=== PATIENT | male | born 1955 | race Caucasian/White ===

== ENCOUNTER 2020-07-08 12:07 | Inpatient (IN) | payer MEDICARE, OTHER ==
[2020-07-08 12:50] LABS: BASOPHIL 0.9 % (0-2); EOSINOPHIL 1.9 % (0-7); HCT 42.6 % (42.0-52.0); HGB 13.4 g/dl (13.2-18.0); LYMPHOCYTE 19.8 % (15-48); MCH 28.9 pg (25.0-31.0); MCHC 31.5 g/dL (32.0-36.0); MONOCYTE 12.3 % (0-12); MPV 11.3 fL (6.0-9.5); NEUTROPHIL 64.8 % (41-80); NRBC 0; PLT 261 K/uL (150-400); RBC 4.63 M/uL (4.70-6.00); RDW 14.2 % (11.5-14.0); WBC 7.5 K/uL (4.0-10.5)
[2020-07-08 13:06] LABS: LACTIC ACID 1.7 mmol/L (0.4-1.9)
[2020-07-08 13:16] LABS: INR 1.39 (0.9-1.2); PROTHROMBIN TIME 16.2 SECONDS (11.4-13.6); PTT 35.4 SECONDS (22.2-34.7)
[2020-07-08 13:56] LABS: ALBUMIN 3.1 g/dL (3.4-5.0); BILIRUBIN - TOTAL 0.8 mg/dL (0.2-1.0); CREATININE 0.85 mg/dL (0.67-1.17); GLOBULIN (CALCULATION) 3.8 g/dL; MAGNESIUM 1.6 mg/dL (1.8-2.4); TOTAL PROTEIN 6.9 g/dL (6.4-8.2)
[2020-07-08 14:03] LABS: BILIRUBIN NEGATIVE (NEGATIVE); BLOOD NEGATIVE Ery/uL (NEGATIVE); CLARITY CLEAR (CLEAR); COLOR YELLOW (YELLOW); GLUCOSE (U) NORMAL (NORMAL); LEUKOCYTES NEGATIVE Leu/uL (NEGATIVE); NITRITE NEGATIVE (NEGATIVE); PROTEIN 1+ mg/dL (NEGATIVE); UROBILINOGEN 0.2 mg/dL (0.2-1.0)
[2020-07-08 14:07] LABS: AMPHETAMINES NEGATIVE (NEGATIVE); BARBITURATES NEGATIVE (NEGATIVE); ECSTASY (MDMA) NEGATIVE (NEGATIVE); MARIJUANA (THC) NEGATIVE (NEGATIVE); METHADONE NEGATIVE (NEGATIVE); OPIATES NEGATIVE (NEGATIVE); OXYCODONE NEGATIVE (NEGATIVE)
[2020-07-08 14:11] LABS: URINARY RBC RARE
[2020-07-08 14:12] LABS: SQUAMOUS EPITHELIAL CELLS RARE
[2020-07-08] MEDS ORDERED: ASPIRIN EC81 MG PO (18:22)
[2020-07-08] MEDS ORDERED: ELIQUIS5 MG PO (18:22)
[2020-07-08] MEDS ORDERED: LIPITOR20 MG PO (18:23)
[2020-07-08] MEDS ORDERED: COREG25 MG PO (18:24)
[2020-07-08] MEDS ORDERED: OS-CAL500 MG PO (18:24)
[2020-07-08] MEDS ORDERED: LEXAPRO 10MG TA10 MG PO (18:25)
[2020-07-08] MEDS ORDERED: DOXEPIN HCL50 MG PO (18:25)
[2020-07-08] MEDS ORDERED: LASIX40 MG PO (18:26)
[2020-07-08] MEDS ORDERED: PEPCID AC20 MG PO (18:26)
[2020-07-08] MEDS ORDERED: LEVOTHYROXINE75 MC2 PO (18:27)
[2020-07-08] MEDS ORDERED: COZAAR50 MG PO (18:28)
[2020-07-08] MEDS ORDERED: CLARITIN10 MG PO (18:28)
[2020-07-08] MEDS ORDERED: MULTI-VITAMIN1 EACH PO (18:29)
[2020-07-08] MEDS ORDERED: NITROGLYCERIN0.4 MG SL (18:38)
[2020-07-08] MEDS ORDERED: POTASSIUM CHLOR8 MEQ PO (18:40)
--- NOTE | 2020-07-08 18:44 | NUR ---
PT CIWA SCORE 3, NO INTERVENTIONS NEEDED. PLACED IN CHART.
[2020-07-09 06:04] LABS: BASOPHIL 0 % (0-2); EOSINOPHIL 0 % (0-7); HCT 36.1 % (42.0-52.0); HGB 11.6 g/dl (13.2-18.0); LYMPHOCYTE 19.9 % (15-48); MCH 28.9 pg (25.0-31.0); MCHC 32.1 g/dL (32.0-36.0); MONOCYTE 6.9 % (0-12); NEUTROPHIL 72.8 % (41-80); NRBC 0; PLT 219 K/uL (150-400); RBC 4.01 M/uL (4.70-6.00); WBC 2.6 K/uL (4.0-10.5)
[2020-07-09 06:23] LABS: ALBUMIN 2.5 g/dL (3.4-5.0); BILIRUBIN - TOTAL 0.6 mg/dL (0.2-1.0); BUN/CREAT RATIO (CALC) 18.2 RATIO; CREATININE 1.21 mg/dL (0.67-1.17); GLOBULIN (CALCULATION) 2.9 g/dL; PHOSPHORUS 4.2 mg/dL (2.6-4.7); POTASSIUM 4.1 mmol/L (3.5-5.1); TOTAL PROTEIN 5.4 g/dL (6.4-8.2)
[2020-07-09 06:30] LABS: INR 1.48 (0.9-1.2)
--- NOTE | 2020-07-09 13:44 | NUR ---
ASKED BY CAL BECK OPERATOR, TO INTERVIEW PT FOR D/C NEEDS. MET WITH PT. HE ADVISED THAT HE LIVES IN [facility] ON HIS SISTERS PROPERTY. HE STATES THAT HE DOES NOT HAVE ANY ELECTRICITY OR RUNNING WATER. HE DOES GET WATER FROM HIS SISTERS HOME. HE USES THE WATER TO BATH, WASH HIS CLOTHES AND FLUSH HIS TOLIET. HE HEATS WITH KEROSENE. HE STATES THAT HIS SISTERS HELPS HIM AND TRANSPORT HIM TO THE DOCTOR, APPTS AND GROCERY. HE KEEPS FOOD IN A COOLER. HE STATES THAT HE DRINKS BEER, BUT HAS NO DESIRE TO STOP, HE DOES NOT FEEL HE HAS A PROBLEM WITH ALCOHOL. HE STATES THAT HE USE TO WORK FOR [employer] AND QUIT TO WORK FOR HIMSELF. HE IS NOW RETIRED AND DRAWS SOCIAL SECURITY. HE DOES NOT WALK WITH A WALKER NOR DOES HE HAVE HOME O2. HE HAS ONE SON, WHO IS CURRENTLY INCARCERATED. HE STATES THAT HE USE TO LIVE IN A APT. WITH A GIRLFRIEND, BUT SHE WENT BACK TO HER EX AND THAT'S WHEN HE MOVED INTO HIS SISTERS TRAIL. HE STATES THAT HE DOESN'T WANT TO LIVE WITH HIS SISTER AND WOULD PREFER TO LIVE ON HIS OWN. HE IS INTERESTED IN FINDING AN APT. GAVE PT. INFORMATION REGARDING HOUSING. PT IS WILLING TO HAVE HH SERVICES WITH A BECK OPERATOR IF THE DOCTOR FEELS APPROPRITE. HE WOULD PREFER [facility]. PT. WAS GIVING INFORMATION REGARDING COMMUNITY RESOURCES AND HOUSING.
[2020-07-10 04:15] LABS: BASOPHIL 0.1 % (0-2); EOSINOPHIL 0.3 % (0-7); HCT 39.8 % (42.0-52.0); HGB 12.5 g/dl (13.2-18.0); LYMPHOCYTE 15.9 % (15-48); MCH 28.9 pg (25.0-31.0); MCHC 31.4 g/dL (32.0-36.0); MCV 91.9 fL (78.0-100.0); MONOCYTE 8.8 % (0-12); MPV 11.4 fL (6.0-9.5); NEUTROPHIL 74.5 % (41-80); NRBC 0; PLT 256 K/uL (150-400); RBC 4.33 M/uL (4.70-6.00); RDW 14.4 % (11.5-14.0)
[2020-07-10 04:16] LABS: WBC 11.2 K/uL (4.0-10.5)
[2020-07-10 04:27] LABS: INR 1.83 (0.9-1.2); PROTHROMBIN TIME 20.1 SECONDS (11.4-13.6)
[2020-07-10 04:42] LABS: ALBUMIN 2.6 g/dL (3.4-5.0); BILIRUBIN - TOTAL 0.6 mg/dL (0.2-1.0); BUN/CREAT RATIO (CALC) 19.4 RATIO; CREATININE 1.6 mg/dL (0.67-1.17); GLOBULIN (CALCULATION) 3.2 g/dL; MAGNESIUM 1.9 mg/dL (1.8-2.4); PHOSPHORUS 4.6 mg/dL (2.6-4.7); TOTAL PROTEIN 5.8 g/dL (6.4-8.2)
[2020-07-11 05:35] LABS: BASOPHIL 0.8 % (0-2); EOSINOPHIL 3.9 % (0-7); HCT 38.4 % (42.0-52.0); HGB 12.2 g/dl (13.2-18.0); LYMPHOCYTE 24.4 % (15-48); MCH 29.1 pg (25.0-31.0); MCHC 31.8 g/dL (32.0-36.0); MCV 91.6 fL (78.0-100.0); MONOCYTE 8.4 % (0-12); MPV 11.7 fL (6.0-9.5); NEUTROPHIL 62.2 % (41-80); NRBC 0; PLT 235 K/uL (150-400); RBC 4.19 M/uL (4.70-6.00); RDW 14.6 % (11.5-14.0); WBC 7.7 K/uL (4.0-10.5)
[2020-07-11 05:46] LABS: INR 2.55 (0.9-1.2); PROTHROMBIN TIME 26.1 SECONDS (11.4-13.6)
[2020-07-11 06:03] LABS: BUN/CREAT RATIO (CALC) 25.5 RATIO; CREATININE 1.41 mg/dL (0.67-1.17); MAGNESIUM 1.6 mg/dL (1.8-2.4); POTASSIUM 4.1 mmol/L (3.5-5.1)
[2020-07-11 06:06] LABS: EOSINOPHIL(M) 8 % (0-7); LYMPHOCYTE(M) 21 % (15-48); MONOCYTE(M) 3 % (0-12); NEUTROPHILS(M) 68 % (41-80); PLATELET ESTIMATE NORMAL; PLATELET MORPHOLOGY NORMAL; TOTAL CELL COUNT 100
[2020-07-12 05:46] LABS: BASOPHIL 0.4 % (0-2); HCT 38.2 % (42.0-52.0); LYMPHOCYTE 16.8 % (15-48); MCH 28.6 pg (25.0-31.0); MCHC 31.4 g/dL (32.0-36.0); MONOCYTE 9.4 % (0-12); MPV 11.6 fL (6.0-9.5); NRBC 0; PLT 201 K/uL (150-400); RDW 14.6 % (11.5-14.0); WBC 8.1 K/uL (4.0-10.5)
[2020-07-12 06:12] LABS: CREATININE 1.29 mg/dL (0.67-1.17); MAGNESIUM 1.9 mg/dL (1.8-2.4); POTASSIUM 4.4 mmol/L (3.5-5.1)
--- NOTE | 2020-07-12 16:12 | NUR ---
07/12/20 Ju Gaytan, [phone], niece telephoned to reports she does not believe Mr. Chou has the ability to make his own decisions. She was educated to the guardianship process. - Pt has been alert and oriented at the time of Alcon Powers's social assessment. - The telephone conversation was discussed with Dr. Cooley. No further intervention are needed at this time in relationship to the telephone call.
== END 2020-07-12 15:40 | disposition other institution (70) | DRG 281 ==
LOC: FER 12:07 → FTCU 15:48
PROVIDERS: Emergency Medicine; Internal Medicine Cardiovascular Disease; Nurse Practitioner; ADMIT Internal Medicine
DX: I11.0 Hypertensive heart disease with heart failure (principal); I21.A1 Myocardial infarction type 2; I48.20 Chronic atrial fibrillation, unspecified; I50.23 Acute on chronic systolic (congestive) heart failure; I25.10 Atherosclerotic heart disease of native coronary artery without angina pectoris; Z79.01 Long term (current) use of anticoagulants; F10.20 Alcohol dependence, uncomplicated; J44.9 Chronic obstructive pulmonary disease, unspecified; E03.9 Hypothyroidism, unspecified; Z95.1 Presence of aortocoronary bypass graft; Z88.0 Allergy status to penicillin; Z88.2 Allergy status to sulfonamides; E78.5 Hyperlipidemia, unspecified; M19.90 Unspecified osteoarthritis, unspecified site; Z90.49 Acquired absence of other specified parts of digestive tract; Z98.890 Other specified postprocedural states; F17.210 Nicotine dependence, cigarettes, uncomplicated; Z20.822 Contact with and (suspected) exposure to COVID-19
CPT/HCPCS: 36415; 71045; 71275; 80048; 80053; 80061; 80305; 81001; 82607; 82962; 83605; 83735; 83880; 84100; 84145; 84484; 85025; 85610; 85730; 87040; 87088; 93005; 94010; 94640; C9113; G0480; J1650; J1940; J3411; J3475; Q9967; U0002

== ENCOUNTER 2020-12-07 14:48 | Emergency (ER) | payer MEDICARE, OTHER ==
[~2020-12-07 14:48] MED LIST: ASPIRIN EC81 MG PO; CLARITIN10 MG PO; COREG25 MG PO; COZAAR50 MG PO; DOXEPIN HCL50 MG PO; ELIQUIS5 MG PO; LASIX40 MG PO; LEVOTHYROXINE75 MC2 PO; LEXAPRO 10MG TA10 MG PO; LIPITOR20 MG PO; MULTI-VITAMIN1 EACH PO; NITROGLYCERIN0.4 MG SL; OS-CAL500 MG PO; PEPCID AC20 MG PO; POTASSIUM CHLOR8 MEQ PO
[2020-12-07 15:48] LABS: BASOPHIL 1.2 % (0-2); EOSINOPHIL 4.9 % (0-7); HGB 12.5 g/dl (13.2-18.0); LYMPHOCYTE 50.7 % (15-48); MCH 26.8 pg (25.0-31.0); MCHC 32.9 g/dL (32.0-36.0); MCV 81.4 fL (78.0-100.0); MONOCYTE 15.5 % (0-12); MPV 11.4 fL (6.0-9.5); NEUTROPHIL 27.7 % (41-80); NRBC 0; PLT 198 K/uL (150-400); RBC 4.67 M/uL (4.70-6.00); WBC 5.2 K/uL (4.0-10.5)
[2020-12-07 15:50] LABS: INR 1.14 (0.9-1.2); PTT 34.9 SECONDS (24.4-34.7)
[2020-12-07 16:03] LABS: ALBUMIN 3.6 g/dL (3.4-5.0); BILIRUBIN - TOTAL 0.4 mg/dL (0.2-1.0); BUN/CREAT RATIO (CALC) 8.1 RATIO; CREATININE 0.74 mg/dL (0.67-1.17); GLOBULIN (CALCULATION) 3.9 g/dL; POTASSIUM 3.8 mmol/L (3.5-5.1); TOTAL PROTEIN 7.5 g/dL (6.4-8.2)
[2020-12-07] MEDS ORDERED: PEPCID AC20 MG PO (18:29)
== END 2020-12-07 18:40 | disposition home or self-care (01) ==
LOC: FER 14:48
PROVIDERS: Emergency Medicine
DX: R07.89 Other chest pain (principal); F10.20 Alcohol dependence, uncomplicated; I48.91 Unspecified atrial fibrillation; F17.200 Nicotine dependence, unspecified, uncomplicated; Z95.1 Presence of aortocoronary bypass graft; Z88.0 Allergy status to penicillin; Z88.2 Allergy status to sulfonamides; Z95.5 Presence of coronary angioplasty implant and graft; Y90.7 Blood alcohol level of 200-239 mg/100 ml
CPT/HCPCS: 36415; 71045; 80053; 82150; 83690; 84484; 85025; 85610; 85730; 93005; C9113; G0480; J3411; J3475; J7030

== ENCOUNTER 2021-01-19 20:54 | Emergency (ER) | payer OTHER ==
[2021-01-19 21:43] LABS: BASOPHIL 0.4 % (0-2); HCT 41.9 % (42.0-52.0); HGB 14.2 g/dl (13.2-18.0); LYMPHOCYTE 37.3 % (15-48); MCH 28.9 pg (25.0-31.0); MCHC 33.9 g/dL (32.0-36.0); MCV 85.3 fL (78.0-100.0); MONOCYTE 13.7 % (0-12); MPV 10.6 fL (6.0-9.5); NEUTROPHIL 40.4 % (41-80); NRBC 0; PLT 172 K/uL (150-400); RBC 4.91 M/uL (4.70-6.00); RDW 18.3 % (11.5-14.0); WBC 4.5 K/uL (4.0-10.5)
[2021-01-19 22:09] LABS: AMYLASE 105 U/L (25-115); BUN/CREAT RATIO (CALC) 11.2 RATIO; CREATININE 0.8 mg/dL (0.67-1.17); LIPASE 276 U/L (73-393); POTASSIUM 3.9 mmol/L (3.5-5.1)
[2021-01-20 01:17] LABS: BILIRUBIN NEGATIVE (NEGATIVE); BLOOD NEGATIVE Ery/uL (NEGATIVE); CLARITY CLEAR (CLEAR); COLOR YELLOW (YELLOW); GLUCOSE (U) NORMAL (NORMAL); LEUKOCYTES NEGATIVE Leu/uL (NEGATIVE); NITRITE NEGATIVE (NEGATIVE); PROTEIN NEGATIVE (NEGATIVE); SPECIFIC GRAVITY <=1.005 (1.001-1.030); UROBILINOGEN 0.2 mg/dL (0.2-1.0)
[2021-01-20 01:22] LABS: AMPHETAMINES NEGATIVE (NEGATIVE); BARBITURATES NEGATIVE (NEGATIVE); ECSTASY (MDMA) NEGATIVE (NEGATIVE); MARIJUANA (THC) NEGATIVE (NEGATIVE); METHADONE NEGATIVE (NEGATIVE); OPIATES NEGATIVE (NEGATIVE); OXYCODONE NEGATIVE (NEGATIVE)
== END 2021-01-20 06:29 | disposition home or self-care (01) ==
LOC: FER 20:54
PROVIDERS: Nurse Practitioner Family
DX: S01.112A Laceration without foreign body of left eyelid and periocular area, initial encounter (principal); S09.90XA Unspecified injury of head, initial encounter; R55 Syncope and collapse; F10.129 Alcohol abuse with intoxication, unspecified; I10 Essential (primary) hypertension; I48.91 Unspecified atrial fibrillation; J44.9 Chronic obstructive pulmonary disease, unspecified; F17.210 Nicotine dependence, cigarettes, uncomplicated; Z88.0 Allergy status to penicillin; Z88.2 Allergy status to sulfonamides; Y90.8 Blood alcohol level of 240 mg/100 ml or more; W19.XXXA Unspecified fall, initial encounter; Y92.512 Supermarket, store or market as the place of occurrence of the external cause
CPT/HCPCS: 36415; 70450; 71046; 72125; 80048; 80305; 81003; 82150; 83690; 84484; 85025; 93005; G0480; J3411; J3475; J7030